=== PATIENT | male | born 1975 | race Caucasian/White ===

== ENCOUNTER 2024-06-22 18:06 | Inpatient (IN) | payer BC ==
[~2024-06-22] VITALS: Ht 175.3 cm; Wt 100.7 kg
[2024-06-22 18:18] VITALS: BP_SYST 152; PULSE 83; RESP 20; TEMP 96.5; O2SAT 96
[2024-06-22] MEDS: NACL 0.9% 1,000 ML IV ONE ×2 (19:00→21:43)
[2024-06-22 19:27] LABS: BILIRUBIN,URINE NEGATIVE (NEGATIVE); BLOOD, URINE 3+ (NEGATIVE); COLOR,URINE YELLOW (YELLOW); GLUCOSE,URINE 3+ (NEGATIVE); KETONES,URINE 1+ (NEGATIVE); LEUKOCYTE ESTERASE ,URINE NEGATIVE (NEGATIVE); NITRITE, URINE NEGATIVE (NEGATIVE); PROTEIN URINE 1+ (NEGATIVE); UROBILINOGEN,URINE 0.2 (0.2-1.0)
[2024-06-22 19:28] LABS: CLARITY/URINE SLIGHTLY HAZY (CLEAR)
[2024-06-22] MEDS: ONDANSETRON HCL 4 MG/2 ML VIAL IVP ONE ×2 (19:29→21:42)
[2024-06-22] MEDS: KETOROLAC TROMETHAMINE 30 MG VIAL IVP ONE (19:29)
[2024-06-22 19:34] LABS: BACTERIA,URINE RARE /HPF (None Seen); MUCUS,URINE None Seen /LPF (None Seen); RBC,URINE >100 /HPF (0-3); WBC,URINE 0-3 /HPF (0-3)
[2024-06-22 19:50] LABS: BASOPHILS % (AUTO) 0.6 % (0.0-2.0); EOSINOPHILS # (AUTO) 0.2 K/uL (0.0-0.4); MONOCYTES # (AUTO) 0.4 K/uL (0.0-1.0); NEUTROPHILS # (AUTO) 4.3 K/uL (1.8-7.7)
[2024-06-22 19:56] LABS: HEMATOCRIT 47.5 % (36-54); HEMOGLOBIN 16.7 g/dL (14.0-18.0); MEAN CORPUSCULAR HEMOGLOBIN 32 pg (27-31); MEAN CORPUSCULAR VOLUME 91 fL (79.0-98.0); RED BLOOD CELL COUNT(AUTO) 5.19 MIL/uL (4.2-6.2); WHITE BLOOD COUNT (AUTO) 6.1 K/uL (4.8-10.8)
[2024-06-22 19:57] LABS: EOSINOPHILS % (AUTO) 3.6 % (0.0-4.0); LYMPHOCYTES # (AUTO) 1.2 K/uL (1.0-5.5); LYMPHOCYTES % (AUTO) 19.7 % (20.5-51.5); MEAN CORPUSCULAR HGB CONC 35 % (32-36); MONOCYTES % (AUTO) 6.1 % (1.7-9.3); PLATELET COUNT (AUTO) 197 K/uL (130-430); RED CELL DISTRIBUTION WIDTH 12.9 % (9.0-15.0)
[2024-06-22 19:58] LABS: ALANINE AMINOTRANSFERASE 80 U/L (12-78); ALBUMIN 3.5 g/dL (3.4-4.8); ANION GAP 6 (5-15); ASPARTATE AMINOTRANSFERASE 31 U/L (10-37); BILIRUBIN,DIRECT < 0.1 mg/dL (0.0-0.3); CALCIUM 8.7 mg/dL (8.4-11.0); CARBON DIOXIDE 29 mmol/L (23-29); CHLORIDE 102 mmol/L (98-107); CREATININE 0.85 mg/dL (0.55-1.30); GFR AFRICAN AMERICAN 124 mL/min (>90); GFR NON AFRICAN-AMERICAN 102 mL/min (>90); GLUCOSE 310 mg/dL (74-106); POTASSIUM 4.6 mmol/L (3.5-5.1); SODIUM SERUM 137 mmol/L (136-145); TOTAL BILIRUBIN 0.4 mg/dL (0.0-1.0); TOTAL PROTEIN, SERUM 7.2 g/dL (6.4-8.3); UREA NITROGEN, BLOOD 9 mg/dL (8-21)
[2024-06-22 20:00] LABS: LIPASE 85 U/L (16-77)
[2024-06-22] MEDS: MORPHINE 4 MG INJ. 4 MG/ML VIAL IVP ONE (21:43)
[2024-06-22] MEDS: TAMSULOSIN HCL 0.4 MG CAP ONE (22:20)
[2024-06-22] MEDS: TAMSULOSIN HCL 0.4 MG CAP PO ONE (22:28)
[2024-06-22] MEDS: NACL 0.9% 1,000 ML IV SCH (23:28)
[2024-06-22] MEDS: KETOROLAC TROMETHAMINE 30 MG VIAL IVP PRN (23:31)
[2024-06-23] MEDS: MORPHINE 2 MG/ML INJ. SYRINGE IVP PRN (05:21)
[2024-06-23 10:30] VITALS: BP_SYST 139; PULSE 76; RESP 16; TEMP 98; O2SAT 99
[2024-06-23] MEDS ORDERED: LORazepam 2 MG/ML VIAL IVP PRN (11:15)
[2024-06-23] MEDS ORDERED: HYDROcodone/ACETAMIN 5-325 MG TAB (NORCO/ VICODIN) PO PRN (11:15)
[2024-06-23] MEDS ORDERED: NALOXONE HCL 0.4 MG/ML AMP (NARCAN) IVP PRN ×2 (11:15)
[2024-06-23] MEDS ORDERED: ACETAMINOPHEN 325 MG TABLET PO PRN (11:15)
[2024-06-23 12:22] VITALS: BP_SYST 144; PULSE 70; RESP 16; TEMP 96.6; O2SAT 98
[2024-06-23] MEDS: PIOGLITAZONE HCL 15 MG TABLET PO ONE (13:27)
[2024-06-23] MEDS: INSULIN REGULAR, HUMAN 100 UNITS/ML, 3 ML VIAL (humuLIN R) SUBCUT PRN (13:35)
[2024-06-23 16:00] VITALS: BP_SYST 148; PULSE 73; RESP 16; TEMP 97.3; O2SAT 98
[2024-06-23] MEDS: metFORMIN HCL 500 MG TABLET PO SCH (17:32)
[2024-06-23 20:00] VITALS: BP_SYST 142; PULSE 77; RESP 18; TEMP 98.5; O2SAT 96
[2024-06-24 00:03] VITALS: BP_SYST 136; PULSE 85; RESP 18; TEMP 97.5; O2SAT 96
[2024-06-24 06:06] LABS: BASOPHILS % (AUTO) 0.5 % (0.0-2.0); EOSINOPHILS # (AUTO) 0.2 K/uL (0.0-0.4); HEMATOCRIT 48.5 % (36-54); HEMOGLOBIN 16.6 g/dL (14.0-18.0); LYMPHOCYTES # (AUTO) 1.3 K/uL (1.0-5.5); LYMPHOCYTES % (AUTO) 20.8 % (20.5-51.5); MEAN CORPUSCULAR HEMOGLOBIN 31 pg (27-31); MEAN CORPUSCULAR HGB CONC 34 % (32-36); MEAN CORPUSCULAR VOLUME 92 fL (79.0-98.0); MONOCYTES # (AUTO) 0.5 K/uL (0.0-1.0); MONOCYTES % (AUTO) 7.5 % (1.7-9.3); NEUTROPHILS # (AUTO) 4.1 K/uL (1.8-7.7); NEUTROPHILS % (AUTO) 68.2 % (40.0-70.0); PLATELET COUNT (AUTO) 190 K/uL (130-430); RED CELL DISTRIBUTION WIDTH 12.8 % (9.0-15.0); WHITE BLOOD COUNT (AUTO) 6.1 K/uL (4.8-10.8)
[2024-06-24 07:15] LABS: PROTHROMBIN TIME 10.4 SECS (9.5-12.5)
[2024-06-24 07:56] LABS: CALCIUM 8.9 mg/dL (8.4-11.0); CREATININE 0.8 mg/dL (0.55-1.30); POTASSIUM 4.4 mmol/L (3.5-5.1)
[2024-06-24 08:05] VITALS: BP_SYST 139; PULSE 69; RESP 16; TEMP 97.7; O2SAT 98
[2024-06-24] MEDS: PIOGLITAZONE HCL 15 MG TABLET PO SCH (09:00)
[2024-06-24 14:47] VITALS: BP_SYST 121; PULSE 70; RESP 16; TEMP 98.6; O2SAT 97
[2024-06-24] MEDS ORDERED: NS 1000 ML IV.SOLN IV ONE (15:46)
[2024-06-24] MEDS ORDERED: ONDANSETRON HCL 4 MG/2 ML VIAL ONE (15:46)
[2024-06-24] MEDS ORDERED: METOCLOPRAMIDE HCL 10 MG/2 ML VIAL ONE (15:46)
[2024-06-24] MEDS ORDERED: SEVOFLURANE 15 MIN GAS INH ONE (15:46)
[2024-06-24] MEDS ORDERED: PROPOFOL 200MG/ 20ML VIAL (DIPRIVAN) IV ONE (15:46)
[2024-06-24] MEDS ORDERED: SUCCINYLCHOLINE CHLORIDE 20 MG/ML(QUELICIN) ONE (15:46)
[2024-06-24] MEDS ORDERED: WATER FOR IRRIGATION,STERILE 1,000 ML IRRIG.SOLN IR ONE (15:46)
[2024-06-24] MEDS: fentaNYL CITRATE/PF 100 MCG/2 ML AMP ONE (16:03)
[2024-06-24] MEDS ORDERED: ONDANSETRON HCL 4 MG/2 ML VIAL IVP PRN (16:45)
[2024-06-24] MEDS ORDERED: HYDROmorphone 1 MG/ML INJ. CARTRIDGE IVP PRN (16:45)
[2024-06-24] MEDS ORDERED: MEPERIDINE HCL/PF 25 MG/ML DISP.SYRIN IVP PRN (16:45)
[2024-06-24] MEDS ORDERED: NALOXONE HCL 0.4 MG/ML AMP (NARCAN) IVP PRN ×2 (16:45)
[2024-06-24] MEDS ORDERED: METOCLOPRAMIDE HCL 10 MG/2 ML VIAL IVP PRN (16:45)
[2024-06-24 18:15] VITALS: BP_SYST 159; PULSE 76; RESP 16; TEMP 98; O2SAT 98
[2024-06-24] MEDS: HYDROmorphone 1 MG/ML INJ. CARTRIDGE IVP PRN (20:24)
[2024-06-25] MEDS: HYDROcodone/ACETAMIN 10-325 MG TAB PO PRN (07:21)
[2024-06-25 07:32] LABS: BASOPHILS % (AUTO) 0.4 % (0.0-2.0); EOSINOPHILS # (AUTO) 0.1 K/uL (0.0-0.4); EOSINOPHILS % (AUTO) 2.6 % (0.0-4.0); HEMATOCRIT 47.4 % (36-54); HEMOGLOBIN 16.3 g/dL (14.0-18.0); LYMPHOCYTES # (AUTO) 0.9 K/uL (1.0-5.5); LYMPHOCYTES % (AUTO) 17.2 % (20.5-51.5); MEAN CORPUSCULAR HEMOGLOBIN 31 pg (27-31); MEAN CORPUSCULAR HGB CONC 34 % (32-36); MEAN CORPUSCULAR VOLUME 91 fL (79.0-98.0); MONOCYTES # (AUTO) 0.4 K/uL (0.0-1.0); MONOCYTES % (AUTO) 7.1 % (1.7-9.3); NEUTROPHILS # (AUTO) 3.9 K/uL (1.8-7.7); NEUTROPHILS % (AUTO) 72.7 % (40.0-70.0); PLATELET COUNT (AUTO) 191 K/uL (130-430); RED CELL DISTRIBUTION WIDTH 12.9 % (9.0-15.0); WHITE BLOOD COUNT (AUTO) 5.3 K/uL (4.8-10.8)
[2024-06-25 08:25] LABS: ALBUMIN 3.4 g/dL (3.4-4.8); CALCIUM 8.9 mg/dL (8.4-11.0); CREATININE 0.82 mg/dL (0.55-1.30); PHOSPHORUS 3.5 mg/dL (2.7-4.5); POTASSIUM 4.1 mmol/L (3.5-5.1); TOTAL BILIRUBIN 0.5 mg/dL (0.0-1.0); TOTAL PROTEIN, SERUM 7.2 g/dL (6.4-8.3)
[2024-06-25 08:26] VITALS: BP_SYST 129; PULSE 80; RESP 20; TEMP 97; O2SAT 99
[2024-06-25 08:28] VITALS: O2SAT 95
[2024-06-25] MEDS ORDERED: KETOROLAC TROMETHAMINE 15 MG VIAL IVP PRN (10:45)
[2024-06-25] MEDS ORDERED: KETOROLAC TROMETHAMINE 30 MG VIAL IVP PRN (10:45)
[2024-06-25] MEDS: ONDANSETRON HCL 4 MG/2 ML VIAL IVP PRN (12:10)
[2024-06-25 12:21] VITALS: BP_SYST 150; PULSE 84; RESP 20; TEMP 97.8; O2SAT 98
[2024-06-25 17:08] VITALS: BP_SYST 170; PULSE 87; RESP 20; TEMP 98.4; O2SAT 97
[2024-06-25] MEDS: hydrALAZINE HCL 25 MG TABLET PO ONE (17:26)
[2024-06-25 17:57] VITALS: BP_SYST 154; PULSE 92; RESP 20; TEMP 98.2; O2SAT 98
[2024-06-25 18:59] VITALS: BP_SYST 154
== END 2024-06-25 18:57 | disposition home or self-care (01) | DRG 694 ==
LOC: SED 18:06 → SMU 22:28
PROVIDERS: ADMIT Preventive Medicine Preventive Medicine/Occupational Environmental Medicine; ATTEND Preventive Medicine Preventive Medicine/Occupational Environmental Medicine
PROC: 0TF7XZZ Fragmentation in Left Ureter, External Approach (ICD-10-PCS; principal; 2024-06-24 16:04)
DX: N13.2 Hydronephrosis with renal and ureteral calculous obstruction (principal); E11.65 Type 2 diabetes mellitus with hyperglycemia; R74.01 Elevation of levels of liver transaminase levels; Z87.442 Personal history of urinary calculi
CPT/HCPCS: 36415; 80048; 80053; 80076; 81000; 81001; 81015; 83037; 83690; 83735; 84100; 85025; 85610; 85730; 86886; 86900; 86901; 87081; 99285; J0330; J1171; J1885; J2270; J2405; J2704; J2765; J3010; J7030